=== PATIENT | male | born 1980 | race Two or more races ===

== ENCOUNTER 2018-05-17 12:29 | Emergency (ER) | payer SELFPAY ==
[~2018-05-17] VITALS: Ht 167.6 cm; Wt 79.4 kg
[2018-05-17 13:25] VITALS: BP 129/87
[2018-05-17] MEDS ORDERED: IBUPROFEN 600 MG TABLET. PO ONE ×2 (14:10→14:30)
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
== END 2018-05-17 14:31 | disposition home or self-care (01) ==
LOC: ER 12:29
DX: S16.1XXA Strain of muscle, fascia and tendon at neck level, initial encounter (principal); M54.5 Low back pain; V47.5XXA Car driver injured in collision with fixed or stationary object in traffic accident, initial encounter; Y93.89 Activity, other specified; Y92.410 Unspecified street and highway as the place of occurrence of the external cause; Y99.8 Other external cause status
CPT/HCPCS: 99282